=== PATIENT | female | born 1955 | race Caucasian/White ===

== ENCOUNTER 2017-01-19 08:29 | Emergency (ER) | payer OTHER | END 2017-01-19 10:41 | disposition home or self-care (01) | LOC: FER 08:29 | DX: S16.1XXA Strain of muscle, fascia and tendon at neck level, initial encounter (principal); I10 Essential (primary) hypertension; Z79.899 Other long term (current) drug therapy; V49.40XA Driver injured in collision with unspecified motor vehicles in traffic accident, initial encounter; Y92.410 Unspecified street and highway as the place of occurrence of the external cause | CPT/HCPCS: 71010; 72050; J1885 ==